=== PATIENT | female | born 1990 | race Asian ===

== ENCOUNTER 2022-07-17 07:52 | Inpatient (IN) ==
[2022-07-17] MEDS ORDERED: OXYTOCIN 30 UNITS/500 ML BAG IV PRN ×3 (08:52→22:14)
[2022-07-17] MEDS ORDERED: LIDOCAINE 1% LOCAL 20 ML VIAL INFIL PRN (08:52)
[2022-07-17] MEDS: LACTATED RINGER'S 1,000 ML IV PRN ×4 (09:23→21:43)
[2022-07-17 09:30] LABS: Hematocrit (blood only) 37.4 % (34.1-44.9); Hemoglobin 12.4 g/dl (12.0-16.0); Mean Corpuscular Hemoglobin 28.9 pg (25.0-34.0); Mean Corpuscular Hgb Conc 33.2 g/dL (32.0-36.0); Mean Corpuscular Volume 87.2 fL (80.0-100.0); Platelet Count 165 K/uL (130-400); RDW Coefficient of Variation 15.6 % (11.5-14.5); RDW Standard Deviation 48.8 fL (36.4-46.3); Red Blood Count 4.29 M/uL (3.93-5.22); White Blood Count 6.65 K/ul (4.8-10.8)
--- NOTE | 2022-07-17 14:49 | History & Physical Report ---
Date of Service July 17, 2022 Assessment & Plan (1) Supervision of normal first : (2) Gestational diabetes: (3) Elective induction of labor planned: Plan - Patient admitted to labor and delivery for initiation of medical induction of labor - Patient is at 4/80/-[address] Quezada w/ evidence of contractions on pitocin augmentation - Patient agreeable to ROM - Will anticipate epidural PRN - Labs ordered Admission and Anticipated Discharge Date Admission Date: July 17, 2022 History of Present Illness Chief Complaint: Induction Primary Care Provider: NO PCP Ling is a 32F currently at 40 6/7 with BRADLEY 07/11/22 determined by LMP 10/04/21 who is presenting to L&D for induction. Complications: GDM diet controlled Reason for Induction/: Post-dates Movement: Yes Fluid Loss/ROM: None Bloody show/discharge: Spotting after cervix check in office External FHT and uterine monitor: Category 1, tracing reactive, good FHT variabi lity, +contractions Last OB appointment: 07/16, regular care Supervisor Mending Hx: No hx STD or abnormal pap Labs: Blood Type: A+ Antibody Screen: Negative Hg/Hct (today): 12.4/37.4 WBC/Plt (today): 6.65/165 Rubella: Immune RPR: Non-reactive Gonorrhea: Negative Chlamydia: Negative HIV: Negative HbSAg: Negative GBS: Negative Cff-DNA: Low risk Panorama: Low Risk Allergies Allergy/AdvReac Type Severity Reaction Status Date / Time No Known Allergies Allergy Verified 07/17/22 08:28 Home Medications Medication Instructions Recorded Confirmed Type prenat.vits,mitzy,qub-swxn-nksft 1 tab PO DAILY 11/27/21 07/17/22 History acetone (urine) test (Ketone Urine #50 ea 02/14/22 07/16/22 Rx Test strips) blood sugar diagnostic (OneTouch #150 ea 02/14/22 07/16/22 Rx Verio test strips) lancets 33 gauge (OneTouch Delica #150 ea 02/14/22 07/16/22 Rx Lancets) Patient History Medical History (Updated 07/17/22 @ 14:46 by Kaiden Reyes DO) Patient denies significant medical history Surgical History (Updated 07/17/22 @ 08:27 by Reina Fernandez RN) No history of previous surgery [place] teeth removed Family History Denies family history of Ovarian cancer Breast cancer Colorectal cancer Social History Smoking Status: Never smoker Second Hand Exposure: No; Hx Alcohol Use: No Hx Substance Use: No Preferred Language: Mandarin Occitan Communication Ability: Effective Builder Beam Required: Yes Beliefs That Will Affect Care: None marital status: marital status details: Ric Kearney (31) [phone] Current Living Situation: Spouse Current Living Situation Comment: lives with spouse, no pets current occupational status: unemployed Other Information That Helps Us Care for You: No Feels Safe at Home: Yes Safety Concerns: Feels Safe At This Time Assistive Devices: Glasses Review of Systems - Denies fever, chills, sweats - Denies dyspnea or pleuritic pain - Denies chest pain, palpitations, or pressure - Denies breast pain - Denies dysuria - Denies headache or visual changes Physical Exam Physical Exam: General: Alert, oriented. No acute distress. Cardiac: Regular rate and rhythm, no murmurs/rubs/gallops. Respiratory: Clear to auscultation bilaterally a/p, no wheezes/rales/rhonchi. No increased work of breathing. Symmetrical chest rise. No respiratory distress. Abdomen: Gravid; reactive FHTs; Position: Vertex by Rayo maneuver Pelvic: 4/80/-[address] Garciatte Lower Extremities: No lower extremity edema or swelling. No deep calf pain. Leandro's negative bilaterally. Results & Data ([facility]) Vital Signs (Past 12 Hours) Vital Signs Temp Pulse Resp BP 07/17/22 14:25 18 07/17/22 14:25 36.4 C L 18 07/17/22 13:44 79 110/72 07/17/22 13:15 18 07/17/22 13:15 18 07/17/22 12:44 85 113/69 07/17/22 12:15 18 07/17/22 12:15 18 07/17/22 11:44 100 H 109/72 07/17/22 11:25 18 07/17/22 11:25 36.5 C 18 07/17/22 10:55 18 12/22/22 10:55 18 07/17/22 10:45 86 114/73 07/17/22 09:55 18 07/17/22 09:55 18 07/17/22 10:10 18 07/17/22 10:10 18 07/17/22 10:25 20 07/17/22 10:25 20 07/17/22 09:34 93 H 132/80 07/17/22 08:22 100 H 114/79 07/17/22 08:29 37.0 C 100 H 18 114/79 Resident Activity Tracking Resident Involvement: Resident Care Provided Care Provided: OB Delivery
[2022-07-17] MEDS ORDERED: fentaNYL citrate 100 MCG/2 ML VIAL ONE (16:01)
[2022-07-17] MEDS ORDERED: ePHEDrine sulfate 50 MG/ML AMP ONE (16:01)
[2022-07-17] MEDS ORDERED: LIDOCAINE 2%/EPINEPHRINE 1:200,000 20 ML SDV ONE (16:02)
[2022-07-17] MEDS ORDERED: BUPIVACAINE 0.25% 30 ML VIAL ONE (16:02)
[2022-07-17] MEDS ORDERED: SODIUM CHLORIDE 0.9% INJ 10 ML VIAL ONE (16:02)
[2022-07-17] MEDS ORDERED: fentaNYL 2MCG/ML ROPIVACAINE 1.25MG/ML 100 ML BAG EPI ONE (16:02)
[2022-07-17] MEDS ORDERED: ONDANSETRON INJ 2 MG/ML 2 ML VIAL IV PRN (16:57)
[2022-07-17] MEDS ORDERED: NALOXONE HCL 1 MG in SODIUM CHLORIDE 0.9% 1000ML 1,000 ML IV PRN (16:57)
[2022-07-17] MEDS ORDERED: NALOXONE HCL 0.4 MG/1 ML VIAL/CARP IV PRN (16:57)
[2022-07-17] MEDS ORDERED: fentaNYL 2MCG/ML ROPIVACAINE 1.25MG/ML 100 ML BAG EPI PRN (16:57)
[2022-07-17] MEDS ORDERED: NALBUPHINE HCL INJ 10 MG/ML AMP IV PRN (16:57)
[2022-07-17] MEDS ORDERED: diphenhydrAMINE 50 MG/ML VIAL IV PRN (16:57)
--- NOTE | 2022-07-17 16:57 | Anesthesiology Consultation ---
Date of Service July 17, 2022 Assessment & Plan Chart Review Chart Review: Acceptable Risk for Labor Epidural Consults Requested none History Height/Weight Height: 5 ft 5 in Weight: 86.818 kg Allergies Allergy/AdvReac Type Severity Reaction Status Date / Time No Known Allergies Allergy Verified 07/17/22 08:28 Medications Home Medications Medication Instructions Recorded Confirmed Last Taken prenat.vits,mitzy,npq-fnxl-abiza 1 tab PO DAILY 11/27/21 07/17/22 07/16/22 20:00 acetone (urine) test (Ketone Urine #50 ea 02/14/22 07/16/22 Unknown Test strips) blood sugar diagnostic (OneTouch #150 ea 02/14/22 07/16/22 Unknown Verio test strips) lancets 33 gauge (OneTouch Delica #150 ea 02/14/22 07/16/22 Unknown Lancets) Active Medications Generic Name Dose Route Start Last Admin Trade Name Freq PRN Reason Stop Dose Admin Lactated Ringer's 1,000 mls @ 125 mls/hr 07/17/22 08:52 07/17/22 15:55 Lr IV 07/19/22 08:51 999 mls/hr .Q8H PRN Infusion L&D Protocol Protocol Oxytocin 30 units in 500 mls @ 14 mls/hr 07/17/22 08:53 07/17/22 13:15 Pitocin IV 07/19/22 08:52 0.84 units/hr .Q24H PRN 14 mls/hr Labor Induction/Augmentation Titration Protocol 0.84 UNITS/HR Past Medical History Medical History (Updated 07/17/22 @ 14:46 by Kaiden Reyes DO) Patient denies significant medical history Past Family History Family History Denies family history of Ovarian cancer Breast cancer Colorectal cancer Past Surgical History Surgical History (Updated 07/17/22 @ 08:27 by Reina Fernandez, MARTIN) No history of previous surgery [place] teeth removed Social History Smoking Status: Never smoker Hx Alcohol Use: No Hx Substance Use: No substance use type: does not use Physical Exam Vital Signs Last Vital Signs Temp 36.7 C 07/17/22 16:10 Pulse 104 H 07/17/22 16:55 Resp 20 07/17/22 16:10 BP 121/73 07/17/22 16:55 Pulse Ox 99 07/17/22 16:55 Testing Laboratory Results 07/17/22 09:17 07/17/22 07/17/22 15:48 08:20 POC Glucose 74 101 H
--- NOTE | 2022-07-17 20:14 | Labor Progress Brief Note ---
Date of Service July 17, 2022 Patient has been doing well with Pitocin augmentation epidural and artificial rupture membranes approximately 30 minutes ago she felt nauseous and vomited and then afterwards felt somewhat shaky her blood sugar was normal however her temperature increased somewhat 37.9 the heart rate is also been elevated for about 20 minutes in the 190 range however there is excellent variability with accelerations patient is fully dilated +1 station we attempted to push on 3 contractions patient was able to push somewhat but not in an ideal fashion we are coaching her through this at this time. I discussed different options certainly with a heart rate this elevated I did not want to continue to watch this for prolonged periods of time. I discussed options we could attempt a vacuum I discussed risks and benefits including the small chance of capsular hematoma. I am somewhat worried that the vacuum may not work it is possible that her efforts are not enough to help with this at the same time there fairly strongly against having a section at this rate so I did offer the vacuum as an option to at least explore all of her alternate options. We discussed this very carefully with them her understands [place] excellent we have offered an naval aircrewman avionics as well Grid Casting Machine Operator Helper is offered as well I will come back in 10 minutes to discuss further with the patient as they are discussing the cells at this time and certainly will rely the best options at this time I do think a vacuum has a chance of being successful as she has +1 station her bladder is recently been drained and I see no obvious O pelvic disproportion at the same time not 100% certain to be successful so we have to have the idea of a section as a backup to this patient seems to understand this along with her Assessment & Plan Admission and Anticipated Discharge Date Admission Date: July 17, 2022 Results & Data ([facility]) Vital Signs (Past 12 Hours) Vital Signs Temp Pulse Resp BP Pulse Ox O2 Del Method 07/17/22 19:00 Room Air 07/17/22 20:07 97 07/17/22 20:07 131 H 07/17/22 20:07 130 H 138/77 07/17/22 19:45 100.2 F H 07/17/22 20:04 160 H 94 07/17/22 20:02 128 H 97 07/17/22 19:57 124 H 97 07/17/22 19:53 118 H 129/76 07/17/22 19:52 122 H 96 07/17/22 19:47 122 H 97 07/17/22 19:42 114 H 97 07/17/22 19:38 129 H 112/55 L 07/17/22 19:37 121 H 96 07/17/22 19:30 122 H 96 07/17/22 19:25 126 H 20 99 07/17/22 19:23 135/83 07/17/22 19:20 120 H 99 07/17/22 19:15 126 H 100 07/17/22 19:10 97.5 F L 118 H 18 100 07/17/22 19:07 130 H 127/73 07/17/22 19:05 122 H 100 07/17/22 19:00 115 H 100 07/17/22 18:55 111 H 100 07/17/22 18:53 100 H 134/81 07/17/22 18:50 100 H 100 07/17/22 18:45 106 H 100 07/17/22 18:40 96 H 100 07/17/22 18:39 100 H 129/86 07/17/22 18:35 94 H 100 07/17/22 18:30 106 H 100 07/17/22 18:25 91 H 100 07/17/22 18:24 100 H 115/74 07/17/22 18:20 93 H 100 07/17/22 18:15 92 H 100 07/17/22 18:10 100 07/17/22 18:10 89 07/17/22 18:10 95 H 119/72 07/17/22 18:05 97.9 F 92 H 18 99 07/17/22 18:00 95 H 100 07/17/22 17:55 94 H 100 07/17/22 17:53 101 H 117/70 07/17/22 17:50 96 H 100 07/17/22 17:45 93 H 100 07/17/22 17:40 92 H 99 07/17/22 17:37 89 111/67 07/17/22 17:35 96 H 100 07/17/22 17:30 96 H 100 07/17/22 17:25 116 H 100 07/17/22 17:24 104 H 121/76 07/17/22 17:20 92 H 99 07/17/22 17:15 108 H 100 07/17/22 17:10 98.1 F 98 H 18 99 07/17/22 17:07 103 H 118/70 07/17/22 17:05 106 H 99 07/17/22 17:02 91 H 120/73 07/17/22 17:01 102 H 119/70 07/17/22 17:00 101 H 99 07/17/22 16:55 104 H 121/73 99 07/17/22 16:53 110 H 119/74 07/17/22 16:52 105 H 125/76 07/17/22 16:50 99 07/17/22 16:50 94 H 07/17/22 16:50 105 H 128/76 07/17/22 16:48 93 H 126/69 07/17/22 16:45 99 07/17/22 16:45 87 07/17/22 16:45 87 136/70 07/17/22 16:40 91 H 99 07/17/22 16:35 93 H 99 07/17/22 16:30 94 H 98 07/17/22 16:25 94 H 96 07/17/22 16:10 20 07/17/22 16:10 98.1 F 20 07/17/22 15:44 86 120/80 07/17/22 15:15 18 07/17/22 15:15 97.9 F 18 07/17/22 14:44 82 112/74 07/17/22 14:25 18 07/17/22 14:25 97.5 F L 18 07/17/22 13:44 79 110/72 07/17/22 13:15 18 07/17/22 13:15 18 07/17/22 12:44 85 113/69 07/17/22 12:15 18 07/17/22 12:15 18 07/17/22 11:44 100 H 109/72 07/17/22 11:25 18 07/17/22 11:25 97.7 F 18 07/17/22 10:55 18 07/17/22 10:55 18 07/17/22 10:45 86 114/73 07/17/22 09:55 18 07/17/22 09:55 18 07/17/22 10:10 18 07/17/22 10:10 18 07/17/22 10:25 20 07/17/22 10:25 20 07/17/22 09:34 93 H 132/80 12/22/22 08:22 100 H 114/79 07/17/22 08:29 98.6 F 100 H 18 114/79 Coding Level of Care Code None
[2022-07-17] MEDS: ePHEDrine sulfate 50 MG/ML AMP IV PRN ×2 (21:27→21:37)
--- NOTE | 2022-07-17 21:27 | Delivery Summary ---
Vaginal Delivery Summary Date of Service July 17, 2022 Vaginal Delivery Summary VAVD Patient had tachycardia persisted I offered vacuum was +1 station she had an adequate epidural her bladder reasonably been drained the vacuum was applied over grand total of 2 contractions there were no pop offs steady descent was made and the baby's head was delivered the vacuum was then detached there was a tight nuchal cord that had to be clamped and cut baby had an anterior shoulder wedge behind the symphysis pubis initial efforts to lower the anterior shoulder below the symphysis were ineffective but I was able to sweep the posterior shoulder anteriorly rotate the baby and then delivered with gentle traction female infant required some initial resuscitation should be noted I made a small right mediolateral episiotomy to facilitate the vacuum as well. Placenta was delivered with gentle traction there was some lateral sidewall vaginal tearing and her tissue quality was somewhat poor was able to repair the vaginal lacerations with 3-0 Vicryl however some of the stitches tore through and had to be sewn a second time at this stage it was confident that I had adequate hemostasis was unable to complete the repair including getting the vagina hemostatic and reapproximating the bulbocavernosus muscle there was no extension to the rectus muscles but the rectus muscle area was supported with a 3-0 Vicryl as well and then closure was finished estimated blood loss approxi mately 800 mL sponge and instruments were counts were correct [facility] Vaginal Delivery Charge Delivery Type Details: [facility]
[2022-07-17 21:39] LABS: Base Excess Cord Arterial Bld -6.2 mEq/L (-9-1.8); CO2 Cord Arterial Blood 39 mmHg (39.1-73.5); HCO3 Cord Arterial Blood 20 mmol/L (19.7-28.5); PO2 Cord Arterial Blood 41 mmHg (4.1-31.7); pH Cord Arterial Blood 7.31 (7.1-7.38)
[2022-07-17 21:40] LABS: Base Excess Cord Venous Blood -3.1 mEq/L (-7.7-1.9); Cord Venous Blood HCO3 21 mmol/L (18.4-26.8); Cord Venous Blood PCO2 35 mmHg (30.4-57.2); Cord Venous Blood PO2 38 mmHg (14.1-43.3); Cord Venous Blood pH 7.39 (7.20-7.44); O2 Saturation Cord Venous Bld 74.1 % (<68)
[2022-07-17] MEDS ORDERED: GENTAMICIN CONSULT ACTIVE PRN (22:03)
[2022-07-17] MEDS ORDERED: HYDROCORTISONE ACETATE 25 MG SUPP PR PRN (22:14)
[2022-07-17] MEDS ORDERED: ACETAMINOPHEN 325 MG TAB PO PRN (22:14)
[2022-07-17] MEDS ORDERED: DIPHTHERIA/TETANUS/PERTUSSIS 0.5mL SYR/VIAL (Age 7+yrs) IM ONE (22:14)
[2022-07-17] MEDS ORDERED: bisacodyL 10 MG SUPP PR PRN (22:14)
[2022-07-17] MEDS ORDERED: BENZOCAINE 20% AER SPR 82.5 GM CAN EXT PRN (22:14)
[2022-07-17] MEDS ORDERED: oxyCODONE/ACETAMINOPHEN 5mg/325mg TAB PO PRN (22:14)
[2022-07-17 22:50] LABS: Hematocrit (blood only) 26.2 % (34.1-44.9); Hemoglobin 8.7 g/dl (12.0-16.0); Mean Corpuscular Hemoglobin 29.2 pg (25.0-34.0); Mean Corpuscular Hgb Conc 33.2 g/dL (32.0-36.0); Mean Corpuscular Volume 87.9 fL (80.0-100.0); Mean Platelet Volume 11.2 fL (9.4-12.3); Partial Thromboplastin Ratio 1.2; Partial Thromboplastin Time 33.3 Seconds (21.0-31.0); Platelet Count 121 K/uL (130-400); Prothrombin Time 10.9 Seconds (9.0-12.0); RDW Coefficient of Variation 15.4 % (11.5-14.5); RDW Standard Deviation 48.8 fL (36.4-46.3); Red Blood Count 2.98 M/uL (3.93-5.22); White Blood Count 12.76 K/ul (4.8-10.8)
--- NOTE | 2022-07-17 22:59 | Obstetrical Progress Note ---
Date of Service July 17, 2022 Assessment & Plan Admission and Anticipated Discharge Date Admission Date: July 17, 2022 Subjective Bleeding has substantially improved patient has elevated heart rate although she feels okay and elevated temperature blood pressures were low as well however stat hemoglobin and coags the hemoglobin is 8.7 which is within reason considering the blood loss antibiotics have been initiated we will watch her closely and I would not treat her for chorioamnionitis she may require transfusion but the at this level I want to give the blood products yet unless clinically she needs them we will wait hemoglobin the morning at that stage if it is low and she feels unwell we may consider transfusion Results & Data ([facility]) Vital Signs (Past 12 Hours) Vital Signs Temp Pulse Resp BP Pulse Ox O2 Del Method 07/17/22 19:00 Room Air 07/17/22 22:57 159 H 87/53 L 94 07/17/22 22:52 94 07/17/22 22:52 162 H 07/17/22 22:53 165 H 94 07/17/22 22:52 155 H 87/55 L 07/17/22 22:47 94 07/17/22 22:47 165 H 07/17/22 22:47 164 H 84/51 L 07/17/22 22:44 156 H 94 07/17/22 22:42 165 H 87/51 L 93 07/17/22 22:37 156 H 90/53 L 95 07/17/22 22:32 169 H 86/50 L 94 07/17/22 22:27 177 H 91/51 L 94 07/17/22 22:22 94 07/17/22 22:22 174 H 07/17/22 22:22 171 H 92/51 L 07/17/22 22:21 171 H 94 07/17/22 22:17 93 07/17/22 22:17 172 H 07/17/22 22:17 173 H 91/54 L 07/17/22 22:15 174 H 94 07/17/22 22:12 94 07/17/22 22:12 169 H 07/17/22 22:12 173 H 95/57 L 07/17/22 22:07 93 07/17/22 22:07 160 H 07/17/22 22:07 158 H 103/58 L 94 07/17/22 22:02 94 07/17/22 22:02 157 H 07/17/22 22:02 153 H 101/56 L 07/17/22 21:58 153 H 93/52 L 07/17/22 21:57 162 H 93 07/17/22 21:56 179 H 73/38 L 07/17/22 21:54 169 H 82/47 L 07/17/22 21:53 166 H 79/46 L 07/17/22 21:49 170 H 97 07/17/22 21:50 169 H 103/58 L 07/17/22 21:47 169 H 100/53 L 07/17/22 21:44 98 07/17/22 21:44 164 H 07/17/22 21:44 166 H 105/57 L 07/17/22 21:41 166 H 96/52 L 07/17/22 21:39 171 H 98 07/17/22 21:38 160 H 94/52 L 07/17/22 21:34 162 H 98 07/17/22 21:35 160 H 89/52 L 07/17/22 21:31 153 H 96/52 L 07/17/22 21:29 163 H 99 07/17/22 21:24 98 07/17/22 21:24 159 H 07/17/22 21:24 157 H 88/52 L 07/17/22 21:22 157 H 77/52 L 07/17/22 20:30 20 07/17/22 20:30 20 07/17/22 21:19 158 H 98 07/17/22 20:00 20 07/17/22 20:00 20 07/17/22 21:14 157 H 99 07/17/22 21:09 151 H 97 07/17/22 21:08 144 H 103/57 L 07/17/22 21:04 153 H 99 07/17/22 20:59 167 H 98 07/17/22 20:54 164 H 100 07/17/22 20:53 173 H 128/60 07/17/22 20:50 157 H 92 07/17/22 20:49 169 H 100 07/17/22 20:45 166 H 93 07/17/22 20:42 160 H 96 07/17/22 20:39 156 H 94 07/17/22 20:37 151 H 126/56 L 93 07/17/22 20:32 171 H 94 07/17/22 20:31 177 H 92 07/17/22 20:27 144 H 98 07/17/22 20:24 141 H 139/68 07/17/22 20:22 154 H 96 07/17/22 20:21 144 H 83 L 07/17/22 20:17 145 H 96 07/17/22 20:12 133 H 97 07/17/22 20:07 97 07/17/22 20:07 131 H 07/17/22 20:07 130 H 138/77 07/17/22 19:45 100.2 F H 07/17/22 20:04 160 H 94 07/17/22 20:02 128 H 97 07/17/22 19:57 124 H 97 07/17/22 19:53 118 H 129/76 07/17/22 19:52 122 H 96 07/17/22 19:47 122 H 97 07/17/22 19:42 114 H 97 07/17/22 19:38 129 H 112/55 L 07/17/22 19:37 121 H 96 07/17/22 19:30 122 H 96 07/17/22 19:25 126 H 20 99 07/17/22 19:23 135/83 07/17/22 19:20 120 H 99 07/17/22 19:15 126 H 100 07/17/22 19:10 97.5 F L 118 H 18 100 07/17/22 19:07 130 H 127/73 07/17/22 19:05 122 H 100 07/17/22 19:00 115 H 100 07/17/22 18:55 111 H 100 07/17/22 18:53 100 H 134/81 07/17/22 18:50 100 H 100 07/17/22 18:45 106 H 100 07/17/22 18:40 96 H 100 07/17/22 18:39 100 H 129/86 07/17/22 18:35 94 H 100 07/17/22 18:30 106 H 100 07/17/22 18:25 91 H 100 07/17/22 18:24 100 H 115/74 07/17/22 18:20 93 H 100 07/17/22 18:15 92 H 100 07/17/22 18:10 100 07/17/22 18:10 89 07/17/22 18:10 95 H 119/72 07/17/22 18:05 97.9 F 92 H 18 99 07/17/22 18:00 95 H 100 07/17/22 17:55 94 H 100 07/17/22 17:53 101 H 117/70 07/17/22 17:50 96 H 100 07/17/22 17:45 93 H 100 07/17/22 17:40 92 H 99 07/17/22 17:37 89 111/67 07/17/22 17:35 96 H 100 07/17/22 17:30 96 H 100 07/17/22 17:25 116 H 100 07/17/22 17:24 104 H 121/76 07/17/22 17:20 92 H 99 07/17/22 17:15 108 H 100 07/17/22 17:10 98.1 F 98 H 18 99 07/17/22 17:07 103 H 118/70 07/17/22 17:05 106 H 99 07/17/22 17:02 91 H 120/73 07/17/22 17:01 102 H 119/70 07/17/22 17:00 101 H 99 07/17/22 16:55 104 H 121/73 99 07/17/22 16:53 110 H 119/74 07/17/22 16:52 105 H 125/76 07/17/22 16:50 99 07/17/22 16:50 94 H 07/17/22 16:50 105 H 128/76 07/17/22 16:48 93 H 126/69 07/17/22 16:45 99 07/17/22 16:45 87 07/17/22 16:45 87 136/70 07/17/22 16:40 91 H 99 07/17/22 16:35 93 H 99 07/17/22 16:30 94 H 98 07/17/22 16:25 94 H 96 07/17/22 16:10 20 07/17/22 16:10 98.1 F 20 07/17/22 15:44 86 120/80 07/17/22 15:15 18 07/17/22 15:15 97.9 F 18 07/17/22 14:44 82 112/74 07/17/22 14:25 18 07/17/22 14:25 97.5 F L 18 07/17/22 13:44 79 110/72 07/17/22 13:15 18 07/17/22 13:15 18 07/17/22 12:44 85 113/69 07/17/22 12:15 18 07/17/22 12:15 18 07/17/22 11:44 100 H 109/72 07/17/22 11:25 18 07/17/22 11:25 97.7 F 18 PG Care Time/CCT Total # of Minutes Spent Total Time Spent with Patient: Total time spent is greater than 50% in coordination of care (as documented) at patient's floor/unit and/or counseling patient: Coding Level of Care Code None
[2022-07-17] MEDS: AMPICILLIN 2,000 MG in SODIUM CHLOR 0.9% AD-VAN 100 ML IV SCH (23:00)
[2022-07-17] MEDS ORDERED: LACTATED RINGER'S 1,000 ML IV SCH (23:00)
[2022-07-17] MEDS: GENTAMICIN SULFATE 430 MG in DEXTROSE 5% 100 ML IV SCH (23:53)
[2022-07-18] MEDS: IBUPROFEN 600 MG TAB PO PRN ×3 (00:01→19:21)
[2022-07-18] MEDS: AMPICILLIN 2,000 MG in SODIUM CHLOR 0.9% AD-VAN 100 ML IV SCH ×4 (04:34→22:37)
--- NOTE | 2022-07-18 05:44 | Obstetrical Progress Note ---
Date of Service July 18, 2022 Assessment & Plan (1) Encounter for care and examination after delivery: Admission and Anticipated Discharge Date Admission Date: July 17, 2022 Subjective Patient seen in conjunction with Dr. Quezada. Please refer to attending physician's note for additional information. Results & Data ([facility]) Vital Signs (Past 12 Hours) Vital Signs Temp Pulse Resp BP Pulse Ox O2 Del Method 07/18/22 03:30 37.1 C 16 07/17/22 23:50 37.2 C 20 07/17/22 22:50 16 07/17/22 22:35 18 07/17/22 22:20 16 07/17/22 23:20 18 07/17/22 22:05 18 07/17/22 21:50 37.2 C 18 07/17/22 19:00 Room Air 07/18/22 05:38 108 H 94 07/18/22 05:33 98 H 92 07/18/22 05:28 105 H 94 07/18/22 05:27 120 H 94/52 L 07/18/22 05:23 105 H 93 07/18/22 05:18 104 H 92 07/18/22 05:13 102 H 93 07/18/22 05:08 98 H 93 07/18/22 05:03 107 H 93 07/18/22 04:58 106 H 94 07/18/22 04:53 107 H 93 07/18/22 04:48 119 H 94 07/18/22 04:43 109 H 95 07/18/22 04:38 115 H 95 07/18/22 04:33 117 H 96 07/18/22 04:28 111 H 93 07/18/22 04:27 112 H 89/50 L 07/18/22 04:23 111 H 93 07/18/22 04:18 113 H 93 07/18/22 04:13 115 H 93 07/18/22 04:08 116 H 94 07/18/22 04:03 118 H 94 07/18/22 03:58 119 H 95 07/18/22 03:53 119 H 94 07/18/22 03:48 117 H 94 07/18/22 03:43 119 H 93 07/18/22 03:38 116 H 95 07/18/22 03:33 125 H 94 07/18/22 03:28 118 H 95 07/18/22 03:23 95 07/18/22 03:23 129 H 07/18/22 03:23 120 H 102/57 L 07/18/22 03:18 121 H 93 07/18/22 03:13 128 H 94 07/18/22 03:08 124 H 94 07/18/22 03:07 123 H 103/59 L 07/18/22 03:03 122 H 93 07/18/22 02:58 131 H 93 07/18/22 02:53 132 H 93 07/18/22 02:52 123 H 99/54 L 07/18/22 02:48 121 H 94 07/18/22 02:43 136 H 94 07/18/22 02:38 95 07/18/22 02:38 128 H 07/18/22 02:38 126 H 100/57 L 07/18/22 02:33 125 H 94 07/18/22 02:28 128 H 94 07/18/22 02:23 94 07/18/22 02:23 123 H 07/18/22 02:23 131 H 92/55 L 07/18/22 02:18 127 H 93 07/18/22 02:13 128 H 94 07/18/22 02:08 129 H 94 07/18/22 02:07 129 H 103/55 L 07/18/22 02:03 131 H 94 07/18/22 01:58 126 H 94 07/18/22 01:53 128 H 94 07/18/22 01:52 127 H 101/56 L 07/18/22 01:48 134 H 94 07/18/22 01:43 129 H 94 07/18/22 01:38 130 H 94 07/18/22 01:37 129 H 97/54 L 07/18/22 01:33 124 H 95 07/18/22 01:28 132 H 94 07/18/22 01:23 95 07/18/22 01:23 130 H 07/18/22 01:23 126 H 101/59 L 07/18/22 01:18 135 H 94 07/18/22 01:13 135 H 94 07/18/22 01:08 137 H 94 07/18/22 01:07 137 H 99/55 L 07/18/22 01:03 135 H 94 07/18/22 00:58 137 H 95 07/18/22 00:53 142 H 94 07/18/22 00:52 134 H 99/54 L 07/18/22 00:48 140 H 94 07/18/22 00:43 141 H 95 07/18/22 00:38 94 07/18/22 00:38 150 H 07/18/22 00:38 139 H 94/50 L 07/18/22 00:33 141 H 94 07/18/22 00:28 146 H 94 07/18/22 00:23 147 H 95 07/18/22 00:22 144 H 97/54 L 07/18/22 00:18 145 H 95 07/18/22 00:13 147 H 95 07/18/22 00:08 150 H 94 07/18/22 00:07 146 H 99/58 L 07/18/22 00:03 147 H 95 07/17/22 23:58 150 H 94 07/17/22 23:53 94 07/17/22 23:53 143 H 07/17/22 23:53 146 H 96/56 L 07/17/22 23:48 145 H 95 07/17/22 23:42 156 H 94 07/17/22 23:37 168 H 94 07/17/22 23:38 166 H 85/58 L 07/17/22 23:32 170 H 95 07/17/22 23:27 176 H 95 07/17/22 23:26 162 H 94 07/17/22 23:22 177 H 94 07/17/22 23:23 179 H 86/61 L 07/17/22 23:21 175 H 94 07/17/22 23:17 171 H 94 07/17/22 23:16 179 H 94 07/17/22 23:12 176 H 94 07/17/22 23:09 182 H 94 07/17/22 23:07 178 H 86/53 L 95 07/17/22 23:04 165 H 94 07/17/22 23:02 157 H 92/55 L 95 07/17/22 22:59 162 H 94 07/17/22 22:57 159 H 87/53 L 94 07/17/22 22:52 94 07/17/22 22:52 162 H 07/17/22 22:53 165 H 94 07/17/22 22:52 155 H 87/55 L 07/17/22 22:47 94 07/17/22 22:47 165 H 07/17/22 22:47 164 H 84/51 L 07/17/22 22:44 156 H 94 07/17/22 22:42 165 H 87/51 L 93 07/17/22 22:37 156 H 90/53 L 95 07/17/22 22:32 169 H 86/50 L 94 07/17/22 22:27 177 H 91/51 L 94 07/17/22 22:22 94 07/17/22 22:22 174 H 07/17/22 22:22 171 H 92/51 L 07/17/22 22:21 171 H 94 07/17/22 22:17 93 07/17/22 22:17 172 H 07/17/22 22:17 173 H 91/54 L 07/17/22 22:15 174 H 94 07/17/22 22:12 94 07/17/22 22:12 169 H 07/17/22 22:12 173 H 95/57 L 07/17/22 22:07 93 07/17/22 22:07 160 H 07/17/22 22:07 158 H 103/58 L 94 07/17/22 22:02 94 07/17/22 22:02 157 H 07/17/22 22:02 153 H 101/56 L 07/17/22 21:58 153 H 93/52 L 07/17/22 21:57 162 H 93 07/17/22 21:56 179 H 73/38 L 07/17/22 21:54 169 H 82/47 L 07/17/22 21:53 166 H 79/46 L 07/17/22 21:49 170 H 97 07/17/22 21:50 169 H 103/58 L 07/17/22 21:47 169 H 100/53 L 07/17/22 21:44 98 07/17/22 21:44 164 H 07/17/22 21:44 166 H 105/57 L 07/17/22 21:41 166 H 96/52 L 07/17/22 21:39 171 H 98 07/17/22 21:38 160 H 94/52 L 07/17/22 21:34 162 H 98 07/17/22 21:35 160 H 89/52 L 07/17/22 21:31 153 H 96/52 L 07/17/22 21:29 163 H 99 07/17/22 21:24 98 07/17/22 21:24 159 H 07/17/22 21:24 157 H 88/52 L 07/17/22 21:22 157 H 77/52 L 07/17/22 20:30 20 07/17/22 20:30 20 07/17/22 21:19 158 H 98 07/17/22 20:00 20 07/17/22 20:00 20 07/17/22 21:14 157 H 99 07/17/22 21:09 151 H 97 07/17/22 21:08 144 H 103/57 L 07/17/22 21:04 153 H 99 07/17/22 20:59 167 H 98 07/17/22 20:54 164 H 100 07/17/22 20:53 173 H 128/60 07/17/22 20:50 157 H 92 07/17/22 20:49 169 H 100 07/17/22 20:45 166 H 93 07/17/22 20:42 160 H 96 07/17/22 20:39 156 H 94 07/17/22 20:37 151 H 126/56 L 93 07/17/22 20:32 171 H 94 07/17/22 20:31 177 H 92 07/17/22 20:27 144 H 98 07/17/22 20:24 141 H 139/68 07/17/22 20:22 154 H 96 07/17/22 20:21 144 H 83 L 07/17/22 20:17 145 H 96 07/17/22 20:12 133 H 97 07/17/22 20:07 97 07/17/22 20:07 131 H 07/17/22 20:07 130 H 138/77 07/17/22 19:45 37.9 C H 07/17/22 20:04 160 H 94 07/17/22 20:02 128 H 97 07/17/22 19:57 124 H 97 07/17/22 19:53 118 H 129/76 07/17/22 19:52 122 H 96 07/17/22 19:47 122 H 97 07/17/22 19:42 114 H 97 07/17/22 19:38 129 H 112/55 L 07/17/22 19:37 121 H 96 07/17/22 19:30 122 H 96 07/17/22 19:25 126 H 20 99 07/17/22 19:23 135/83 07/17/22 19:20 120 H 99 07/17/22 19:15 126 H 100 07/17/22 19:10 36.4 C L 118 H 18 100 07/17/22 19:07 130 H 127/73 07/17/22 19:05 122 H 100 07/17/22 19:00 115 H 100 07/17/22 18:55 111 H 100 07/17/22 18:53 100 H 134/81 07/17/22 18:50 100 H 100 07/17/22 18:45 106 H 100 07/17/22 18:40 96 H 100 07/17/22 18:39 100 H 129/86 07/17/22 18:35 94 H 100 07/17/22 18:30 106 H 100 07/17/22 18:25 91 H 100 07/17/22 18:24 100 H 115/74 07/17/22 18:20 93 H 100 07/17/22 18:15 92 H 100 07/17/22 18:10 100 07/17/22 18:10 89 07/17/22 18:10 95 H 119/72 07/17/22 18:05 36.6 C 92 H 18 99 07/17/22 18:00 95 H 100 07/17/22 17:55 94 H 100 07/17/22 17:53 101 H 117/70 07/17/22 17:50 96 H 100 07/17/22 17:45 93 H 100
--- NOTE | 2022-07-18 06:37 | Obstetrical Progress Note ---
Date of Service July 18, 2022 Assessment & Plan (1) Post-operative state: day #1 patient had a vacuum-assisted vaginal delivery uncomplicated vaginal repair she is doing well at this time she will be moved to the side her bleeding is minimal at this stage we will remove the catheter later in the day as she is uncomfortable in the area most of her tearing was internal vaginal along with a small episiotomy continue current care otherwise Subjective Ambulation: ambulating normally Voiding: [place] catheter in place Diet Tolerance:: regular diet Lochia:: Small Constitutional: + as per Subjective / HPI Physical Exam Constitutional WD/WN, vitals as above well developed and well nourished Respiratory normal respiratory effort, lungs clear to auscultation normal respiratory effort Cardiovascular RRR, no murmur, no edema Gastrointestinal (Abdomen) normal bowel sounds, soft, nontender, no hepatosplenomegaly Results & Data ([facility]) Vital Signs (Past 12 Hours) Vital Signs Temp Pulse Resp BP Pulse Ox O2 Del Method 07/18/22 03:30 98.8 F 16 07/17/22 23:50 99.0 F 20 07/17/22 22:50 16 07/17/22 22:35 18 07/17/22 22:20 16 07/17/22 23:20 18 07/17/22 22:05 18 07/17/22 21:50 99.0 F 18 07/17/22 19:00 Room Air 07/18/22 06:28 96 H 95 07/18/22 06:27 96 H 98/55 L 07/18/22 06:23 105 H 96 07/18/22 06:18 110 H 96 07/18/22 06:13 96 H 93 07/18/22 06:08 102 H 93 07/18/22 06:03 106 H 92 07/18/22 05:58 101 H 92 07/18/22 05:53 100 H 93 07/18/22 05:48 104 H 92 07/18/22 05:43 112 H 93 07/18/22 05:38 108 H 94 07/18/22 05:33 98 H 92 07/18/22 05:28 105 H 94 07/18/22 05:27 120 H 94/52 L 07/18/22 05:23 105 H 93 07/18/22 05:18 104 H 92 07/18/22 05:13 102 H 93 07/18/22 05:08 98 H 93 07/18/22 05:03 107 H 93 07/18/22 04:58 106 H 94 07/18/22 04:53 107 H 93 07/18/22 04:48 119 H 94 07/18/22 04:43 109 H 95 07/18/22 04:38 115 H 95 07/18/22 04:33 117 H 96 07/18/22 04:28 111 H 93 07/18/22 04:27 112 H 89/50 L 07/18/22 04:23 111 H 93 07/18/22 04:18 113 H 93 07/18/22 04:13 115 H 93 07/18/22 04:08 116 H 94 07/18/22 04:03 118 H 94 07/18/22 03:58 119 H 95 07/18/22 03:53 119 H 94 07/18/22 03:48 117 H 94 07/18/22 03:43 119 H 93 07/18/22 03:38 116 H 95 07/18/22 03:33 125 H 94 07/18/22 03:28 118 H 95 07/18/22 03:23 95 07/18/22 03:23 129 H 07/18/22 03:23 120 H 102/57 L 07/18/22 03:18 121 H 93 07/18/22 03:13 128 H 94 07/18/22 03:08 124 H 94 07/18/22 03:07 123 H 103/59 L 07/18/22 03:03 122 H 93 07/18/22 02:58 131 H 93 07/18/22 02:53 132 H 93 07/18/22 02:52 123 H 99/54 L 07/18/22 02:48 121 H 94 07/18/22 02:43 136 H 94 07/18/22 02:38 95 07/18/22 02:38 128 H 07/18/22 02:38 126 H 100/57 L 07/18/22 02:33 125 H 94 07/18/22 02:28 128 H 94 07/18/22 02:23 94 07/18/22 02:23 123 H 07/18/22 02:23 131 H 92/55 L 07/18/22 02:18 127 H 93 07/18/22 02:13 128 H 94 07/18/22 02:08 129 H 94 07/18/22 02:07 129 H 103/55 L 07/18/22 02:03 131 H 94 07/18/22 01:58 126 H 94 07/18/22 01:53 128 H 94 07/18/22 01:52 127 H 101/56 L 07/18/22 01:48 134 H 94 07/18/22 01:43 129 H 94 07/18/22 01:38 130 H 94 07/18/22 01:37 129 H 97/54 L 07/18/22 01:33 124 H 95 07/18/22 01:28 132 H 94 07/18/22 01:23 95 07/18/22 01:23 130 H 07/18/22 01:23 126 H 101/59 L 07/18/22 01:18 135 H 94 07/18/22 01:13 135 H 94 07/18/22 01:08 137 H 94 07/18/22 01:07 137 H 99/55 L 07/18/22 01:03 135 H 94 07/18/22 00:58 137 H 95 07/18/22 00:53 142 H 94 07/18/22 00:52 134 H 99/54 L 07/18/22 00:48 140 H 94 07/18/22 00:43 141 H 95 07/18/22 00:38 94 07/18/22 00:38 150 H 07/18/22 00:38 139 H 94/50 L 07/18/22 00:33 141 H 94 07/18/22 00:28 146 H 94 07/18/22 00:23 147 H 95 07/18/22 00:22 144 H 97/54 L 07/18/22 00:18 145 H 95 07/18/22 00:13 147 H 95 07/18/22 00:08 150 H 94 07/18/22 00:07 146 H 99/58 L 07/18/22 00:03 147 H 95 07/17/22 23:58 150 H 94 07/17/22 23:53 94 07/17/22 23:53 143 H 07/17/22 23:53 146 H 96/56 L 07/17/22 23:48 145 H 95 07/17/22 23:42 156 H 94 07/17/22 23:37 168 H 94 07/17/22 23:38 166 H 85/58 L 07/17/22 23:32 170 H 95 07/17/22 23:27 176 H 95 07/17/22 23:26 162 H 94 07/17/22 23:22 177 H 94 07/17/22 23:23 179 H 86/61 L 07/17/22 23:21 175 H 94 07/17/22 23:17 171 H 94 07/17/22 23:16 179 H 94 07/17/22 23:12 176 H 94 07/17/22 23:09 182 H 94 07/17/22 23:07 178 H 86/53 L 95 07/17/22 23:04 165 H 94 07/17/22 23:02 157 H 92/55 L 95 07/17/22 22:59 162 H 94 07/17/22 22:57 159 H 87/53 L 94 07/17/22 22:52 94 07/17/22 22:52 162 H 07/17/22 22:53 165 H 94 07/17/22 22:52 155 H 87/55 L 07/17/22 22:47 94 07/17/22 22:47 165 H 07/17/22 22:47 164 H 84/51 L 07/17/22 22:44 156 H 94 07/17/22 22:42 165 H 87/51 L 93 07/17/22 22:37 156 H 90/53 L 95 07/17/22 22:32 169 H 86/50 L 94 07/17/22 22:27 177 H 91/51 L 94 07/17/22 22:22 94 07/17/22 22:22 174 H 07/17/22 22:22 171 H 92/51 L 07/17/22 22:21 171 H 94 07/17/22 22:17 93 07/17/22 22:17 172 H 07/17/22 22:17 173 H 91/54 L 07/17/22 22:15 174 H 94 07/17/22 22:12 94 07/17/22 22:12 169 H 07/17/22 22:12 173 H 95/57 L 07/17/22 22:07 93 07/17/22 22:07 160 H 07/17/22 22:07 158 H 103/58 L 94 07/17/22 22:02 94 07/17/22 22:02 157 H 07/17/22 22:02 153 H 101/56 L 07/17/22 21:58 153 H 93/52 L 07/17/22 21:57 162 H 93 07/17/22 21:56 179 H 73/38 L 07/17/22 21:54 169 H 82/47 L 07/17/22 21:53 166 H 79/46 L 07/17/22 21:49 170 H 97 07/17/22 21:50 169 H 103/58 L 07/17/22 21:47 169 H 100/53 L 07/17/22 21:44 98 07/17/22 21:44 164 H 07/17/22 21:44 166 H 105/57 L 07/17/22 21:41 166 H 96/52 L 07/17/22 21:39 171 H 98 07/17/22 21:38 160 H 94/52 L 07/17/22 21:34 162 H 98 07/17/22 21:35 160 H 89/52 L 07/17/22 21:31 153 H 96/52 L 07/17/22 21:29 163 H 99 07/17/22 21:24 98 07/17/22 21:24 159 H 07/17/22 21:24 157 H 88/52 L 07/17/22 21:22 157 H 77/52 L 07/17/22 20:30 20 07/17/22 20:30 20 07/17/22 21:19 158 H 98 07/17/22 20:00 20 07/17/22 20:00 20 07/17/22 21:14 157 H 99 07/17/22 21:09 151 H 97 07/17/22 21:08 144 H 103/57 L 07/17/22 21:04 153 H 99 07/17/22 20:59 167 H 98 07/17/22 20:54 164 H 100 07/17/22 20:53 173 H 128/60 07/17/22 20:50 157 H 92 07/17/22 20:49 169 H 100 07/17/22 20:45 166 H 93 07/17/22 20:42 160 H 96 07/17/22 20:39 156 H 94 07/17/22 20:37 151 H 126/56 L 93 07/17/22 20:32 171 H 94 07/17/22 20:31 177 H 92 07/17/22 20:27 144 H 98 07/17/22 20:24 141 H 139/68 07/17/22 20:22 154 H 96 07/17/22 20:21 144 H 83 L 07/17/22 20:17 145 H 96 07/17/22 20:12 133 H 97 07/17/22 20:07 97 07/17/22 20:07 131 H 07/17/22 20:07 130 H 138/77 07/17/22 19:45 100.2 F H 07/17/22 20:04 160 H 94 07/17/22 20:02 128 H 97 07/17/22 19:57 124 H 97 07/17/22 19:53 118 H 129/76 07/17/22 19:52 122 H 96 07/17/22 19:47 122 H 97 07/17/22 19:42 114 H 97 07/17/22 19:38 129 H 112/55 L 07/17/22 19:37 121 H 96 07/17/22 19:30 122 H 96 07/17/22 19:25 126 H 20 99 07/17/22 19:23 135/83 07/17/22 19:20 120 H 99 07/17/22 19:15 126 H 100 07/17/22 19:10 97.5 F L 118 H 18 100 07/17/22 19:07 130 H 127/73 07/17/22 19:05 122 H 100 07/17/22 19:00 115 H 100 07/17/22 18:55 111 H 100 07/17/22 18:53 100 H 134/81 07/17/22 18:50 100 H 100 07/17/22 18:45 106 H 100 07/17/22 18:40 96 H 100 07/17/22 18:39 100 H 129/86 07/17/22 18:35 94 H 100
[2022-07-18 07:05] LABS: Hematocrit (blood only) 20.4 % (34.1-44.9); Hemoglobin 6.8 g/dl (12.0-16.0); Mean Corpuscular Hemoglobin 28.7 pg (25.0-34.0); Mean Corpuscular Hgb Conc 33.3 g/dL (32.0-36.0); Mean Corpuscular Volume 86.1 fL (80.0-100.0); Mean Platelet Volume 11.1 fL (9.4-12.3); Platelet Count 102 K/uL (130-400); RDW Coefficient of Variation 15.7 % (11.5-14.5); RDW Standard Deviation 48.6 fL (36.4-46.3); Red Blood Count 2.37 M/uL (3.93-5.22); White Blood Count 18.05 K/ul (4.8-10.8)
[2022-07-18] MEDS ORDERED: SODIUM CHLORIDE 0.9% 250 ML IV PRN (07:10)
--- NOTE | 2022-07-18 07:13 | Obstetrical Progress Note ---
Date of Service July 18, 2022 Assessment & Plan Admission and Anticipated Discharge Date Admission Date: July 17, 2022 Subjective Hemoglobin 6.8 I have recommended transfusion for the patient due to the blood loss and the acute coronary amnionitis. 2 units packed red blood cells has been ordered consent reviewed with the patient Results & Data ([facility]) Vital Signs (Past 12 Hours) Vital Signs Temp Pulse Resp BP Pulse Ox 07/18/22 03:30 98.8 F 16 07/17/22 23:50 99.0 F 20 07/17/22 22:50 16 07/17/22 22:35 18 07/17/22 22:20 16 07/17/22 23:20 18 07/17/22 22:05 18 07/17/22 21:50 99.0 F 18 07/18/22 07:08 101 H 96 07/18/22 07:03 96 H 93 07/18/22 06:58 104 H 94 07/18/22 06:53 101 H 94 07/18/22 06:48 99 H 94 07/18/22 06:43 100 H 96 07/18/22 06:38 100 H 95 07/18/22 06:33 104 H 94 07/18/22 06:28 96 H 95 07/18/22 06:27 96 H 98/55 L 07/18/22 06:23 105 H 96 07/18/22 06:18 110 H 96 07/18/22 06:13 96 H 93 07/18/22 06:08 102 H 93 07/18/22 06:03 106 H 92 07/18/22 05:58 101 H 92 07/18/22 05:53 100 H 93 07/18/22 05:48 104 H 92 07/18/22 05:43 112 H 93 07/18/22 05:38 108 H 94 07/18/22 05:33 98 H 92 07/18/22 05:28 105 H 94 07/18/22 05:27 120 H 94/52 L 07/18/22 05:23 105 H 93 07/18/22 05:18 104 H 92 07/18/22 05:13 102 H 93 07/18/22 05:08 98 H 93 07/18/22 05:03 107 H 93 07/18/22 04:58 106 H 94 07/18/22 04:53 107 H 93 07/18/22 04:48 119 H 94 07/18/22 04:43 109 H 95 07/18/22 04:38 115 H 95 07/18/22 04:33 117 H 96 07/18/22 04:28 111 H 93 07/18/22 04:27 112 H 89/50 L 07/18/22 04:23 111 H 93 07/18/22 04:18 113 H 93 07/18/22 04:13 115 H 93 07/18/22 04:08 116 H 94 07/18/22 04:03 118 H 94 07/18/22 03:58 119 H 95 07/18/22 03:53 119 H 94 07/18/22 03:48 117 H 94 07/18/22 03:43 119 H 93 07/18/22 03:38 116 H 95 07/18/22 03:33 125 H 94 07/18/22 03:28 118 H 95 07/18/22 03:23 95 07/18/22 03:23 129 H 07/18/22 03:23 120 H 102/57 L 07/18/22 03:18 121 H 93 07/18/22 03:13 128 H 94 07/18/22 03:08 124 H 94 07/18/22 03:07 123 H 103/59 L 07/18/22 03:03 122 H 93 07/18/22 02:58 131 H 93 07/18/22 02:53 132 H 93 07/18/22 02:52 123 H 99/54 L 07/18/22 02:48 121 H 94 07/18/22 02:43 136 H 94 07/18/22 02:38 95 07/18/22 02:38 128 H 07/18/22 02:38 126 H 100/57 L 07/18/22 02:33 125 H 94 07/18/22 02:28 128 H 94 07/18/22 02:23 94 07/18/22 02:23 123 H 07/18/22 02:23 131 H 92/55 L 07/18/22 02:18 127 H 93 07/18/22 02:13 128 H 94 07/18/22 02:08 129 H 94 07/18/22 02:07 129 H 103/55 L 07/18/22 02:03 131 H 94 07/18/22 01:58 126 H 94 07/18/22 01:53 128 H 94 07/18/22 01:52 127 H 101/56 L 07/18/22 01:48 134 H 94 07/18/22 01:43 129 H 94 07/18/22 01:38 130 H 94 07/18/22 01:37 129 H 97/54 L 07/18/22 01:33 124 H 95 07/18/22 01:28 132 H 94 07/18/22 01:23 95 07/18/22 01:23 130 H 07/18/22 01:23 126 H 101/59 L 07/18/22 01:18 135 H 94 07/18/22 01:13 135 H 94 07/18/22 01:08 137 H 94 07/18/22 01:07 137 H 99/55 L 07/18/22 01:03 135 H 94 07/18/22 00:58 137 H 95 07/18/22 00:53 142 H 94 07/18/22 00:52 134 H 99/54 L 07/18/22 00:48 140 H 94 07/18/22 00:43 141 H 95 07/18/22 00:38 94 07/18/22 00:38 150 H 07/18/22 00:38 139 H 94/50 L 07/18/22 00:33 141 H 94 07/18/22 00:28 146 H 94 07/18/22 00:23 147 H 95 07/18/22 00:22 144 H 97/54 L 07/18/22 00:18 145 H 95 07/18/22 00:13 147 H 95 07/18/22 00:08 150 H 94 07/18/22 00:07 146 H 99/58 L 07/18/22 00:03 147 H 95 07/17/22 23:58 150 H 94 07/17/22 23:53 94 07/17/22 23:53 143 H 07/17/22 23:53 146 H 96/56 L 07/17/22 23:48 145 H 95 07/17/22 23:42 156 H 94 07/17/22 23:37 168 H 94 07/17/22 23:38 166 H 85/58 L 07/17/22 23:32 170 H 95 07/17/22 23:27 176 H 95 07/17/22 23:26 162 H 94 07/17/22 23:22 177 H 94 07/17/22 23:23 179 H 86/61 L 07/17/22 23:21 175 H 94 07/17/22 23:17 171 H 94 07/17/22 23:16 179 H 94 07/17/22 23:12 176 H 94 07/17/22 23:09 182 H 94 07/17/22 23:07 178 H 86/53 L 95 07/17/22 23:04 165 H 94 07/17/22 23:02 157 H 92/55 L 95 07/17/22 22:59 162 H 94 07/17/22 22:57 159 H 87/53 L 94 07/17/22 22:52 94 07/17/22 22:52 162 H 07/17/22 22:53 165 H 94 07/17/22 22:52 155 H 87/55 L 07/17/22 22:47 94 07/17/22 22:47 165 H 07/17/22 22:47 164 H 84/51 L 07/17/22 22:44 156 H 94 07/17/22 22:42 165 H 87/51 L 93 07/17/22 22:37 156 H 90/53 L 95 07/17/22 22:32 169 H 86/50 L 94 07/17/22 22:27 177 H 91/51 L 94 07/17/22 22:22 94 07/17/22 22:22 174 H 07/17/22 22:22 171 H 92/51 L 07/17/22 22:21 171 H 94 07/17/22 22:17 93 07/17/22 22:17 172 H 07/17/22 22:17 173 H 91/54 L 07/17/22 22:15 174 H 94 07/17/22 22:12 94 07/17/22 22:12 169 H 07/17/22 22:12 173 H 95/57 L 07/17/22 22:07 93 07/17/22 22:07 160 H 07/17/22 22:07 158 H 103/58 L 94 07/17/22 22:02 94 07/17/22 22:02 157 H 07/17/22 22:02 153 H 101/56 L 07/17/22 21:58 153 H 93/52 L 07/17/22 21:57 162 H 93 07/17/22 21:56 179 H 73/38 L 07/17/22 21:54 169 H 82/47 L 07/17/22 21:53 166 H 79/46 L 07/17/22 21:49 170 H 97 07/17/22 21:50 169 H 103/58 L 07/17/22 21:47 169 H 100/53 L 07/17/22 21:44 98 07/17/22 21:44 164 H 07/17/22 21:44 166 H 105/57 L 07/17/22 21:41 166 H 96/52 L 07/17/22 21:39 171 H 98 07/17/22 21:38 160 H 94/52 L 07/17/22 21:34 162 H 98 07/17/22 21:35 160 H 89/52 L 07/17/22 21:31 153 H 96/52 L 07/17/22 21:29 163 H 99 07/17/22 21:24 98 07/17/22 21:24 159 H 07/17/22 21:24 157 H 88/52 L 07/17/22 21:22 157 H 77/52 L 07/17/22 20:30 20 07/17/22 20:30 20 07/17/22 21:19 158 H 98 07/17/22 20:00 20 07/17/22 20:00 20 07/17/22 21:14 157 H 99 07/17/22 21:09 151 H 97 07/17/22 21:08 144 H 103/57 L 07/17/22 21:04 153 H 99 07/17/22 20:59 167 H 98 07/17/22 20:54 164 H 100 07/17/22 20:53 173 H 128/60 07/17/22 20:50 157 H 92 07/17/22 20:49 169 H 100 07/17/22 20:45 166 H 93 07/17/22 20:42 160 H 96 07/17/22 20:39 156 H 94 07/17/22 20:37 151 H 126/56 L 93 07/17/22 20:32 171 H 94 07/17/22 20:31 177 H 92 07/17/22 20:27 144 H 98 07/17/22 20:24 141 H 139/68 07/17/22 20:22 154 H 96 07/17/22 20:21 144 H 83 L 07/17/22 20:17 145 H 96 07/17/22 20:12 133 H 97 07/17/22 20:07 97 07/17/22 20:07 131 H 07/17/22 20:07 130 H 138/77 07/17/22 19:45 100.2 F H 07/17/22 20:04 160 H 94 07/17/22 20:02 128 H 97 07/17/22 19:57 124 H 97 07/17/22 19:53 118 H 129/76 07/17/22 19:52 122 H 96 07/17/22 19:47 122 H 97 07/17/22 19:42 114 H 97 07/17/22 19:38 129 H 112/55 L 07/17/22 19:37 121 H 96 07/17/22 19:30 122 H 96 07/17/22 19:25 126 H 20 99 07/17/22 19:23 135/83 07/17/22 19:20 120 H 99 07/17/22 19:15 126 H 100 PG Care Time/CCT Total # of Minutes Spent Total Time Spent with Patient: Total time spent is greater than 50% in coordination of care (as documented) at patient's floor/unit and/or counseling patient: Coding Level of Care Code None
[2022-07-18 07:16] LABS: Est GFR (African American) 135.2 ml/min; Est GFR (Non-African American) 116.7 ml/min
--- NOTE | 2022-07-18 08:33 | Anesthesia Procedure Note ---
Date of Service July 18, 2022 Anesthesia Post Epidural Note Vital Signs Vital Signs: Temp Pulse Resp BP Pulse Ox O2 Del Method 36.7 C 108 H 16 102/64 103 H 07/18/22 08:30 07/18/22 08:30 07/18/22 08:30 07/18/22 08:30 07/18/22 08:13 07/18/22 07:45 Pain Intensity Episiotomy/Laceration: Pain Intensity: 0 Notes Mental Status: alert / awake / arousable Nausea / Vomiting: adequately controlled Pain: adequately controlled Airway Patency, RR, SpO2: stable & adequate BP & HR: stable & adequate Hydration State: stable & adequate Neuraxial Anesthesia: was administered and sensory block is resolving Anesthetic Complications: no major complications apparent and Pt Satisfied with anesthetic care Epidural: Removed without complications and With tip intact
[2022-07-18] MEDS: PRENATAL VITAMIN 1 TAB PO SCH (08:54)
[2022-07-18] MEDS: DOCUSATE SODIUM 100 MG CAP PO SCH ×2 (08:54→19:21)
--- NOTE | 2022-07-18 09:05 | Pharmacy Report ---
Pharmacy PK ABX Note - Date of Service July 18, 2022 - Assessment and Plan Assessment 32 year old F receiving empiric gentamicin and ampicillin for treatment of possible intraamniotic infection in setting. Leukocytosis noted overnight and this morning, 12.8 and 18.05 k respectively. Unsure of baseline renal function, but appears to be normal this morning (SCr 0.65 mg/dL). Day # 1 of antimicrobial therapy. Plan Gentamicin * Will dose at 5 mg/kg based on actual body weight (430 mg) IV q24h per protocol for intrapartum/ patients * Will obtain trough level if therapy is extended beyond 72 hours Ampicillin * 2 g IV q6h - appropriate for indication/renal function Pharmacy will continue to follow and will adjust dose/frequency as necessary. Thank you. Pharmacy has transitioned to AUC monitoring for vancomycin. AUC/SHEFALI is the preferred PK/PD target and is associated with decreased risk of nephrotoxicity compared to traditional trough targets.
[2022-07-18] MEDS ORDERED: bisacodyL 5 MG TABEC PO SCH (20:00)
[2022-07-18] MEDS: GENTAMICIN SULFATE 430 MG in DEXTROSE 5% 100 ML IV SCH (23:26)
[2022-07-19] MEDS: IBUPROFEN 600 MG TAB PO PRN ×5 (04:07→23:47)
[2022-07-19] MEDS: AMPICILLIN 2,000 MG in SODIUM CHLOR 0.9% AD-VAN 100 ML IV SCH ×4 (04:11→22:18)
--- NOTE | 2022-07-19 07:23 | Obstetrical Progress Note ---
Date of Service July 19, 2022 Assessment & Plan (1) Vaginal delivery: Delivered with VAVD involving significant vaginal lacerations with complex repair, and PPH treated with 2u pRBC transfused yesterday. Recheck of H&H/Cr this morning still pending. Edema in the labial region much improved and lochia small, with vitals stable, suggesting hemostasis in the repaired tissues. Inability to void yesterday possibly due to the ongoing tissue edema, then complicated by bladder distention, so we'll rest the bladder with a washington until early afternoon today then re-attempt a Trial of Void. Hopefully with edema improved, will meet with success this time. Patient's RN was verbally notified by this MD to leave washington until around 1pm before removing, and to ensure voids are actually completed / be aware of language barrier. Subjective Ambulation: ambulating normally Voiding: washington catheter in place Passing Gas:: Yes Diet Tolerance:: regular diet Lochia:: Small Feeding Type:: bottle feeding Patient had washington removed yesterday at 3:15pm. Language barrier likely caused an issue when nursing asked "are you going to the bathroom" and patient / FOB replied "yes," but they only meant she was physically going/ambulating into the bathroom - she had actually been unable to void at all. I was notified at 3:30a m when the night guard nurse realized that the patient's worsening pain was due to a very distended bladder with inability to void x12 hours, and bladder scan showed 1700cc. She replaced the washington, removed 1600cc urine, and the patient felt much better. This morning the patient has no pelvic pain and her washington is draining light yellow urine. She is able to ambulate around the room, her vulvar swelling is much less than yesterday, lochia is small, and she is eating and passing flatus. Physical Exam Constitutional WD/WN, vitals as above Eyes PERRL, conjunctivae normal, anicteric sclerae Neck normal visual inspection Respiratory normal respiratory effort and able to speak in complete sentences; no respiratory distress and no labored breathing Cardiovascular Rate/Rhythm: regular rate and regular rhythm Extremities: no edema Chest (Breasts) Chest: normal inspection of chest Gastrointestinal (Abdomen) Inspection/Auscultation: abdomen normal to inspection Soft, postgravid Psychiatric A+Ox3, euthymic affect Genitourinary OB Exam Abdomen: + fundal height Fundus: + firm and + relation to umbilicus (fundus just below umbilicus); not tender Results & Data ([facility]) Vital Signs (Past 12 Hours) Vital Signs Temp Pulse Resp BP O2 Del Method 07/19/22 03:40 98.1 F 99 H 16 106/71 Room Air 07/18/22 23:20 97.9 F 96 H 16 108/73 Room Air
[2022-07-19 07:48] LABS: Hematocrit (blood only) 22.5 % (34.1-44.9); Hemoglobin 7.6 g/dl (12.0-16.0)
[2022-07-19 08:08] LABS: Creatinine Clr Calc Pharmacy 161.2 ml/min; Est GFR (African American) 143.7 ml/min
[2022-07-19] MEDS: DOCUSATE SODIUM 100 MG CAP PO SCH ×2 (08:26→17:00)
[2022-07-19] MEDS: PRENATAL VITAMIN 1 TAB PO SCH (08:26)
[2022-07-19] MEDS ORDERED: POLYETHYLENE (MIRALAX) 17 GM PACK PO PRN (20:04)
[2022-07-19] MEDS ORDERED: GENTAMICIN TROUGH ONE (23:00)
[2022-07-19] MEDS: GENTAMICIN SULFATE 430 MG in DEXTROSE 5% 100 ML IV SCH (23:46)
[2022-07-20] MEDS: IBUPROFEN 600 MG TAB PO PRN ×3 (06:10→16:12)
[2022-07-20 06:32] LABS: Hematocrit (blood only) 24.2 % (34.1-44.9); Hemoglobin 8.2 g/dl (12.0-16.0)
[2022-07-20] MEDS: PRENATAL VITAMIN 1 TAB PO SCH (09:25)
[2022-07-20] MEDS: DOCUSATE SODIUM 100 MG CAP PO SCH (09:25)
--- NOTE | 2022-07-20 12:50 | Obstetrical Progress Note ---
Date of Service July 20, 2022 Assessment & Plan (1) Encounter for care and examination after delivery: Marlyn is a 32-year-old day 3 status post vacuum assisted vaginal delivery post course has been complicated by urinary retention. Moreland was replaced again last night as patient was unable to void. We will attempt voiding trial this morning discharged home trial is unsuccessful we will discharge home with a Moreland catheter. Discussed plan with patient and her . Patient otherwise doing well and stable for discharge. Subjective Ambulation: ambulating normally Voiding: no voiding problems Passing Gas:: Yes Diet Tolerance:: regular diet Lochia:: Moderate Feeding Type:: breast feeding Physical Exam Constitutional WD/WN, vitals as above Respiratory normal respiratory effort; no respiratory distress and no labored breathing Gastrointestinal (Abdomen) Inspection/Auscultation: abdomen normal to inspection; abdomen not distended Percussion/Palpation: abdomen soft; abdomen nontender, no guarding and abdomen not rigid Genitourinary OB Exam Abdomen: + fundal height Fundus: + firm and + relation to umbilicus (Below); not tender or not boggy Results & Data ([facility]) Vital Signs (Past 12 Hours) Vital Signs Temp Pulse Resp BP Pulse Ox O2 Del Method 07/19/22 23:40 36.7 C 116 H 16 121/83 Room Air 07/19/22 19:48 36.7 C 107 H 20 135/88 98 Room Air
== END 2022-07-20 16:24 | disposition home or self-care (01) | DRG 805 ==
LOC: 4S1 07:52 → 4E2 07-18 07:31